=== PATIENT | male | born 1940 | race Caucasian/White ===

== ENCOUNTER → 2016-07-12 | Outpatient (CLI) | payer OTHER | END | disposition home or self-care (01) | LOC: C.LABSPEC 13:30 | PROVIDERS: ATTEND Dermatology | DX: R21 Rash and other nonspecific skin eruption (principal); L30.9 Dermatitis, unspecified ==

== ENCOUNTER → 2016-08-31 | Outpatient (CLI) | payer OTHER | END | disposition home or self-care (01) | LOC: C.LABSPEC 13:42 | PROVIDERS: ATTEND Dermatology | DX: L08.9 Local infection of the skin and subcutaneous tissue, unspecified (principal); L30.9 Dermatitis, unspecified ==

== ENCOUNTER → 2016-09-15 | Outpatient (CLI) | payer OTHER | END | disposition home or self-care (01) | LOC: C.LABSPEC 13:50 | PROVIDERS: ATTEND Dermatology | DX: L25.9 Unspecified contact dermatitis, unspecified cause (principal) ==

== ENCOUNTER → 2016-11-23 | Outpatient (CLI) | payer OTHER | END | disposition home or self-care (01) | LOC: C.PATHSPEC 16:48 | PROVIDERS: ATTEND Dermatology | DX: Z12.31 Encounter for screening mammogram for malignant neoplasm of breast (principal) ==

== ENCOUNTER → 2017-02-01 | Outpatient (CLI) | payer OTHER ==
--- NOTE | 2017-02-02 08:11 | MAMMOGRAPHY REPORT ---
MALE BILATERAL DIGITAL DIAGNOSTIC MAMMOGRAM TOMOSYNTHESIS WITH CAD AND TARGETED BILATERAL ULTRASOUND: 02/01/2017 CLINICAL HISTORY: Patient presents for evaluation of the left breast and areola. He reports an area of pain, swelling and abnormal sensation in the 12:00 left breast. Per provider comments, there is l eft breast fullness and discomfort with overlying rash on areola. The patient reports prior skin bio psy of the areola, however, I am unable to see any pathology results from the left areola in the EMR. Patient denies nipple discharge and family history of breast cancer. TECHNIQUE: Breast tomosynthesis in addition to standard 2D mammography was performed. Current study was also evaluated with a Computer Aided Detection (CAD) system. COMPARISON: No prior exams were available for comparison. BREAST COMPOSITION: The breast parenchyma is nearly entirely fat. FINDINGS: A triangular palpable skin marker overlies the 12:00 periareolar left breast, denoting the abnormal sensation, pain and swelling pointed out by the patient. There is no evidence of a suspicio us breast mass, architectural distortion, asymmetry or calcifications. Minimal skin thickening of th e left areola compared to the right. Targeted ultrasound was performed in the left periareolar and retroareolar breast and also the right periareolar and retroareolar breast for comparison purposes. There is minimal skin thickening of the left areola, measuring up to 2.8 mm. The right areola measures 2.4 mm. IMPRESSION: ACR BI-RADS CATEGORY 2: BENIGN, TARGETED ULTRASOUND ACR BI-RADS CATEGORY 2: BENIGN 1. There is no mammographic or targeted sonographic evidence of malignancy or other suspicious abnor mality to explain the skin changes of the left areola. No evidence of gynecomastia bilaterally. 2. Continued clinical follow-up is recommended for the skin changes of the left areola and skin samp ling is recommended, if it has not already been performed. These results and recommendations were discussed with the patient at the time of the exam. Approximately 10% of breast cancers are not detected with mammography. A negative mammographic report should not delay biopsy if a clinically suggestive mass is present. Cary Mendes M.D. ay/:02/01/2017 14:22:18 Systems Security Consultant: Julieta DIGGS(Tay)(Eleuterio), [facility] letter sent: Normal 1/2 BI-RADS Code: ACR BI-RADS Category 2: Benign Ultrasound BI-RADS: ACR BI-RADS Category 2: Benign
== END | disposition home or self-care (01) ==
LOC: C.MAMM 13:05
PROVIDERS: ATTEND Dermatology
DX: N63 Unspecified lump in breast (principal)

== ENCOUNTER → 2017-06-14 | Outpatient (CLI) | payer OTHER | END | disposition home or self-care (01) | LOC: C.LABSPEC 12:47 | PROVIDERS: ATTEND Dermatology | DX: L30.9 Dermatitis, unspecified (principal) ==

== ENCOUNTER → 2018-01-02 | Outpatient (CLI) | payer OTHER ==
[~2018-01-02] MED LIST: ASPI81TA28 PO; ATOR-26 PO; ATV/2 PO; BUSP15TA70 PO; CMD5 PO; FIBETAB2 PO; LNX125 PO; METO-596 PO; NTRGSL/4 UT; SERT-234 PO; [UNRECOGNIZED DRUG - CODE] PO
--- NOTE | 2018-01-02 14:20 | DIAGNOSTIC IMAGING REPORT ---
CHEST 2 VIEWS ROUTINE CLINICAL HISTORY: 77 years-old Male presenting with preoperative assessment. TECHNIQUE: PA and lateral views of the chest were obtained. COMPARISON: None. FINDINGS: Left subclavian pacer with leads in the right atrium and right ventricular apex. Mild cardiomegaly. Coronary artery stent noted. Prominent skin fold over the right lower lung periphery. Lungs and pleural spaces clear. Osseous structures normal. Upper abdomen normal. IMPRESSION: 1. Cardiomegaly. No other convincing evidence of acute cardiopulmonary disease. Electronically signed by: Bartolo Martin M.D. 01/02/2018 2:18 PM Dictated Date/Time: 01/02/2018 2:17 PM
[2018-01-02 14:50] LABS: BASO % 0.2 %; BASO ABS # 0.02 K/uL (0-0.2); EOS % 2.6 %; EOS ABS # 0.23 K/uL (0-0.5); HEMOGLOBIN 14.7 g/dL (14.0-18.0); IG# 0.02 K/uL (0.00-0.02); LYMPH % 21.6 %; LYMPH ABS # 1.89 K/uL (1.2-3.4); MEAN CELL VOLUME 97.8 fL (80-100); MEAN CORPUSCULAR HEMOGLOBIN 32.7 pg (25-34); MEAN CORPUSCULAR HGB CONC 33.4 g/dl (32-36); MEAN PLATELET VOLUME 10.8 fL (7.4-10.4); MONO ABS # 0.61 K/uL (0.11-0.59); NEUT % 68.4 %; NEUT ABS # 5.96 K/uL (1.4-6.5); PLATELET COUNT 204 K/uL (130-400); RED CELL DISTRIBUTION WIDTH CV 13.4 % (11.5-14.5); RED CELL DISTRIBUTION WIDTH SD 48.2 fL (36.4-46.3); WHITE BLOOD COUNT 8.73 K/uL (4.8-10.8)
[2018-01-02 14:53] LABS: HEMOGLOBIN A1C 5.5 % (4.5-5.6)
[2018-01-02 15:09] LABS: PTT PATIENT 39.1 SECONDS (21.0-31.0)
[2018-01-02 15:11] LABS: INR 4.3 (0.9-1.1)
[2018-01-02 15:35] LABS: ALBUMIN 3.7 gm/dl (3.4-5.0); BLOOD UREA NITROGEN 20 mg/dl (7-18); CARBON DIOXIDE 29 mmol/L (21-32); CREATININE 1.18 mg/dl (0.60-1.40); GLUCOSE 102 mg/dl (70-99); POTASSIUM 4.4 mmol/L (3.5-5.1); SODIUM 143 mmol/L (136-145)
== END | disposition home or self-care (01) ==
LOC: C.CPL 13:08
DX: Z01.810 Encounter for preprocedural cardiovascular examination (principal); Z01.812 Encounter for preprocedural laboratory examination; I51.7 Cardiomegaly